=== PATIENT | male | born 1960 | race Caucasian/White ===

== ENCOUNTER 2017-11-06 08:00 | Outpatient (RCR) | payer BC, MEDICARE, SELFPAY ==
--- NOTE | 2017-11-01 15:16 | HMH.PTOPEV ---
Rehab Outpatient Evaluation Rehab OP Evaluation Start: 11/01/17 14:53 Freq: Status: Active Protocol: Document 11/01/17 14:53 XAVI (Rec: 11/01/17 15:16 XAVI [id number]) Electronically Signed By Yoandy Wood, PT 11/01/17 14:53 Outpatient Therapy Subjective History Subjective History Pt reports h/o balance issues and intermittent cramping in B LE's (calf mm, feet) for ~1yr . Pt reports diagnosis of Parkinson's disease correlates with this timeline, however, pt reports that 'me staying as active as possible seems to slow the progression of my Parkinson's'. Pt reports 2 falls in the last 6 months, which has decreased in frequency d/t 'slowing down when walking around'. Chief Complaint Paresthesia Weakness Other Symptom Type Numbness Tingling Symptoms Relieved By Activity Symptoms Aggravated By Standing Physical Activity Walking Prior Functional Limitations Housework Standing Walking Balance Current Functional Limitations Housework Standing Walking Balance Symptom Description Constant but Variable Level of pain today (0-10) 3 Pain scale - at its best (0-10) 3 Pain scale - at its worst (0-10) 3 Hip/Knee Eval MMT bilateral Hip Flexion Strength Grade 4 Good Hip Abduction Strength Grade 4 Good Hip Adduction Strength Grade 4 Good Hip Extension Strength Grade 4 Good Knee Extension Strength Grade 5 Normal Knee Flexion Strength Grade 5 Normal Balance Eval Subjective Hx of Complaint Comment parkinson's disease, balance deficits Chief Complaint vertigo No Did you feel dizzy, unsteady or faint? No Activity at onset 1yr Hx of Falls Hx Falls Yes Number in last 6 months 2 Gait/Posture Asssessment General Gait Observation Decrease Stride Lngth (R) Decrease Stride Lngth (L) Assistive Devices None / NA Level of Transfer Assist
== END 2017-11-06 08:01 | disposition home or self-care (01) ==
LOC: PT 08:00
PROVIDERS: Visit Provider Internal Medicine Adolescent Medicine
DX: G20 Parkinson's disease (principal); R29.6 Repeated falls; R27.0 Ataxia, unspecified
CPT/HCPCS: 97110; 97112

== ENCOUNTER 2017-11-08 09:45 | Outpatient (RCR) | payer BC, MEDICARE, SELFPAY | END 2017-11-08 09:46 | disposition home or self-care (01) | LOC: OT 09:45 | PROVIDERS: Visit Provider Internal Medicine Adolescent Medicine | DX: R29.898 Other symptoms and signs involving the musculoskeletal system (principal); R29.818 Other symptoms and signs involving the nervous system ==

== ENCOUNTER → 2019-02-18 12:11 | Outpatient (CLI) | payer MEDICARE, SELFPAY ==
--- NOTE | 2019-02-18 12:18 | NVE_ITS ---
Venous Exam Indications: 729.81 Swelling of limb. 782.3 Edema. IMPRESSIONS 1. There is no evidence of significant Reflux. 2. No evidence of deep or superficial vein thrombosis involving the left lower extremity 3. No evidence of deep or superficial vein thrombosis involving the right lower extremity Complete lower extremity venous duplex evaluation. Doppler flow study including spectral analysis, color and judd scale imaging. Location: Vascular laboratory. Patient status: Outpatient. CRITICAL FINDINGS - Reported to: TSESY - Read back and verified. - 02/18/19 - 1230 - NO DVT/SVT INCIDENTAL FINDING BAKERS CYST LEFT CALF Tables: Venous flow and imaging: + +-------+ + Location Overall Flow properties + +-------+ + Right common femoral Patent Normal phasicity; spontaneous; normal augmentation; compressible + +-------+ + Right saphenofemoral junction Patent Compressible + +-------+ + Right profunda femoral Patent Compressible + +-------+ + Right femoral Patent Normal phasicity; spontaneous; normal augmentation; compressible; no reflux + +-------+ + Right greater saphenous Patent Normal phasicity; spontaneous; normal augmentation; compressible + +-------+ + Right popliteal Patent Normal phasicity; spontaneous; normal augmentation; compressible + +-------+ + Right posterior tibial Patent Compressible + +-------+ + Right peroneal Patent Compressible + +-------+ + Right gastrocnemius Patent Compressible + +-------+ + Right soleal Patent Compressible + +-------+ + Left common femoral Patent Normal phasicity; spontaneous; normal augmentation; compressible + +-------+ + Left saphenofemoral junction Patent Compressible + +-------+ + Left profunda femoral Patent Compressible + +-------+ + Left femoral Patent Normal phasicity; spontaneous; normal augmentation; compressible + +-------+ + Left greater saphenous Patent Normal phasicity; spontaneous;
== END ==
PROVIDERS: PCP Internal Medicine Adolescent Medicine; Visit Provider Internal Medicine Adolescent Medicine
DX: R60.1 Generalized edema (principal); M79.662 Pain in left lower leg; M79.661 Pain in right lower leg
CPT/HCPCS: 93970

== ENCOUNTER → 2019-03-24 12:09 | Outpatient (CLI) | payer MEDICARE, SELFPAY ==
--- NOTE | 2019-03-24 12:15 | XR_ITS ---
XR hip LT 2-3V w/pelvis HISTORY: Left hip pain ITS.REASON: LOW BACK PAIN ORDERING PHYSICIAN: Deny Santos MD PATIENT AGE: 58 years COMPARISON: None FINDINGS: No fracture or dislocation is evident. No significant degenerative change. No lytic or blastic change. Unremarkable soft tissues IMPRESSION: Negative hip
--- NOTE | 2019-03-24 12:15 | XR_ITS ---
EXAM: XR lumbar spine min 4V HISTORY: ITS.REASON: LOW BACK PAIN ORDERING PHYSICIAN: Deny Santos MD PATIENT AGE: 58 years COMPARISON: None FINDINGS: There is mild dextroscoliosis of the lumbar spine with multilevel degenerative disc disease from T11 to S1. There is slight decrease in the disc spaces with small endplate osteophytes. There is facet hypertrophic/arthritic change at L4-L5 and L5-S1. There is generalized vascular calcification. No acute fracture or dislocation. No lytic or blastic change. IMPRESSION: Lumbar spondylosis with degenerative disc disease and facet arthritic change
--- NOTE | 2019-03-24 12:15 | XR_ITS ---
XR hip RT 2-3V w/pelvis HISTORY: ITS.REASON: LOW BACK PAIN ORDERING PHYSICIAN: Deny Santos MD PATIENT AGE: 58 years COMPARISON: None FINDINGS: No fracture or dislocation is evident. There are minimal osteoarthritic changes of the right hip with slight decrease in the joint space medially and minimal osteophyte formation along the inferior aspect of the acetabulum. IMPRESSION: Minimal osteoarthritic change of the right hip
== END ==
PROVIDERS: PCP Internal Medicine Adolescent Medicine; Visit Provider Internal Medicine Adolescent Medicine
DX: M54.5 Low back pain (principal)
CPT/HCPCS: 72110; 73502

== ENCOUNTER → 2019-04-02 14:04 | Outpatient (CLI) | payer MEDICARE, SELFPAY ==
--- NOTE | 2019-04-02 14:10 | XR_ITS ---
XR foot RT min 3V HISTORY: ITS.REASON: RT FOOT PAIN ORDERING PHYSICIAN: Deny Santos MD PATIENT AGE: 58 years COMPARISON: None FINDINGS: There are mild osteoarthritic changes of the first metatarsal phalangeal joint. There is also some osteoarthritic change of the head of the first metatarsal with adjacent sesamoids. Normal alignment. No acute fracture or dislocation. IMPRESSION: Mild osteoarthritis of the first MTP joint and head of the first metatarsal with adjacent sesamoids
== END ==
PROVIDERS: PCP Internal Medicine Adolescent Medicine; Visit Provider Internal Medicine Adolescent Medicine
DX: M79.671 Pain in right foot (principal)
CPT/HCPCS: 73630

== ENCOUNTER → 2019-12-14 08:39 | Outpatient (POV) | payer MEDICARE, SELFPAY ==
[2019-12-14 09:04] VITALS: BP 112/65; PULSE 72; RESP 18; TEMP 36.3; O2SAT 99; BMI 39.9
--- NOTE | 2019-12-14 15:58 | HMH.PMCON ---
Assessment and Plan (1) Back pain Current visit: Yes Status: Chronic Category: Medical Code(s): M54.9 - Dorsalgia, unspecified (2) Degenerative disc disease Current visit: Yes Status: Chronic Category: Medical - Assessment and plan all Dx Assessment and Plan for all problems:: The patient does have an x-ray showing some degenerative disc disease. We will order a lumbar MRI for better determining of his pathology. I will follow-up with him after this. Patient's been instructed to call the office if he has any issues prior to the next appointment. Dr. Marte has reviewed this note and agrees with this plan of care. This note was dictated using voice recognition software and may contain errors or omissions we specifically discussed risk factors for Covid-19 including age, heart or lung disease, diabetes, immunosuppression and travel. We also discussed that NSAIDs may worsen Covid-19 infection symptoms and that they should not be used to treat Covid-19 symptoms. Patient was also informed that corticosteroids in any form oral or injectable will decrease immune response and may increase risk of Covid-[address] Marte has reviewed this patient's chart and this note and agrees with plan of care. Patient has been instructed to call the office if they have any issues prior to the next appointment. HPI - Data of Consult Consult date: 12/14/19 Requesting Physician: Keena Glass APRN Primary Care Provider: Deny Santos MD - Consult Narrative Reason for consult: Back pain History of present illness: Mr. Meneses is a 59 year old male who presents today for consultation in regards to his back and leg pain. Patient rates his pain a 9 out of 10. Patient states he has numbness and tingling in his bilateral lower extremities. Patient has tried and failed anti-inflammatories. Patient's been seeing a neurologist. All movement increases pain well rest Tylenol and aspirin decrease pain. Patient does have Parkinson's. Patient does not have any recent MRI of his low back. I do believe that this would be beneficial to start with. CC: Keena Glass APRN [facility] History I have reviewed the patient's past medical history: Yes Medical History: Reports:: Anxiety, Chronic Obstructive Pulmonary Disease (COPD), Coronary Artery Disease, Diabetes Mellitus Type 2, Hyperlipidemia, Hypertension, Palpitations Denies:: Diabetes Mellitus Type 1, MRSA *Have you ever received a pneumonia vaccine?: Yes *Have you received a flu vaccine this season?: Yes Other Surgeries: Yes: Cardiac Catheterization, Cholecystectomy, ColonoscopyComment Only: Other (.) Amputation: No Fractures: No - *Social History Smoking Status: Never smoker Alcohol Intake: never Substance Use Type: denies use *Occupational Status:: unemployed Housing: house Household Members: spouse *Travel in the last 8 weeks: None - Psychiatric History Pschychiatric History:: Reports:: Anxiety Family Hx:: No significant family history Review of Systems - Review of Systems ROS General: no recent weight change, no fever, no sleep disturbances Respiratory: no cough, no shortness of air, no recurring pulmonary infections Cardiovascular/Peripheral Vascular: No chest pain, No palpitations, no edema, no shortness of breath. Gastrointestinal: no new onset incontinence, normal bowel movements reported Genitourinary: no new onset incontinence Musculoskeletal: Back pain, leg pain Psychiatric: normal mood/ affect, Neurological: [denies new onset weakness in extremities], [denies new onset balance issues] Meds Home Medications Medication Instructions Recorded Confirmed Type aspirin 81 mg tablet,delayed 81 mg PO DAILY tab 11/18/17 12/14/19 History release carbidopa ER 50 mg-levodopa 200 mg 1 tab PO BID tab 11/18/17 12/14/19 History tablet,extended release metformin 500 mg tablet 500 mg PO BID 11/18/17 12/14/19 History mometasone-formot
== END ==
PROVIDERS: PCP Internal Medicine Adolescent Medicine; Visit Provider Clinical Nurse Specialist Family Health
DX: M51.36 Other intervertebral disc degeneration, lumbar region
CPT/HCPCS: 99202

== ENCOUNTER → 2019-12-18 09:07 | Outpatient (CLI) | payer MEDICARE, SELFPAY ==
--- NOTE | 2019-12-18 09:13 | MR_ITS ---
PROCEDURE: MR LUMBAR SPINE WO CON CLINICAL INDICATION: BACK PAIN Low back pain with bilateral hip pain COMPARISON: No exams were available for comparison TECHNIQUE: Standard multiplanar multiecho sequences are performed without contrast. 3-D MIP and myelographic images are also rendered and reviewed FINDINGS: There is normal alignment. The spinal cord ends at the T12-L1 level. T11-T12: Unremarkable. T12-L1: Unremarkable. L1-L2: Degenerative disc disease with minimal bulging disc and mild facet and uncovertebral hypertrophy with mild left foraminal narrowing. L2-L3: Mild degenerative disc disease with minimal bulging disc and facet and ligamentum hypertrophy a L3-L4: Mild degenerative disc disease with bulging disc along with facet and ligamentum hypertrophy with mild bilateral lateral recess and foraminal narrowing L4-5: Degenerate disc disease with mild bulging disc with facet ligamentum hypertrophy with moderate bilateral foraminal narrowing and lateral recess narrowing. L5-S1: Degenerate disc disease with mild bulging disc. There is small central disc protrusion with small annular fissure. There is facet ligamentum hypertrophy with moderate bilateral foraminal narrowing. No extruded herniated disc or canal stenosis. IMPRESSION: Multilevel lumbar spondylosis with degenerative disc disease with bulging disc and facet ligamentum hypertrophy with lateral recess and foraminal narrowing. Please see above for detailed description at each level. Small central disc protrusion with small annular fissure at L5-S1 No extruded herniated disc or canal stenosis Dictated by: Christiano Richardson MD 12/19/2019 10:45 Electronically signed by Christiano Richardson MD in [place] 12/19/2019 10:45
== END ==
PROVIDERS: PCP Internal Medicine Adolescent Medicine; Visit Provider Anesthesiology
DX: M54.5 Low back pain (principal)
CPT/HCPCS: 72148; 76376

== ENCOUNTER → 2019-12-28 15:05 | Outpatient (POV) | payer MEDICARE, SELFPAY ==
[2019-12-28 15:12] VITALS: BP 137/88; PULSE 78; RESP 18; TEMP 36.6; O2SAT 98; BMI 38.9
--- NOTE | 2019-12-28 15:49 | HMH.PAINSOAP ---
[facility] Pain Management SOAP Note Subjective:: Patient is a pleasant 59-year-old white male who presents today for follow-up after MRI. Patient has degenerative disc disease, ligamentum flavum hypertrophy and bulging disc. Patient and I talked about an epidurogram and potential mild procedure. Along with epidural steroid injections. Patient states most of his pain is when he is up and walking. He finds that he cannot move forward without leaning forward. He rates his pain today 8 out of 10. He is not on any anticoagulation therapy. ROS General: no recent weight change, no fever, no sleep disturbances Respiratory: no cough, no shortness of air, no recurring pulmonary infections Cardiovascular/Peripheral Vascular: No chest pain, No palpitations, no edema, no shortness of breath. Gastrointestinal: no new onset incontinence, normal bowel movements reported Genitourinary: no new onset incontinence Musculoskeletal: Back pain, leg pain Psychiatric: normal mood/ affect, [denies depression], [denies anxiety] Neurological: Weakness bilateral lower extremities while walking, [denies new onset balance issues] Objective:: Physical Exam General: Alert and oriented x3, no acute distress, pleasant and cooperative, [on room air] Lungs: Resps E/U, Symmetrical chest expansion, Eyes: PERRL Musculoskeletal: Flexion and extension of lumbar spine somewhat guarded secondary to pain, deep tendon reflexes normal, strength in upper and lower extremities [5/5], [abnormal gait noted] Neurological: speech clear, monitor technician equal, no gross sensory deficits Assessment:: Degenerative disc disease lumbar spine with lumbar radiculopathy and spinal stenosis with neurogenic claudication Plan:: We will set the patient up for an L4-L5 lumbar epidural steroid injection and epidurogram to determine if he is mild candidate. I will follow-up with him after this reassess his symptoms at that time he has been instructed to call the office if he has any issues prior to his next appointment. We specifically discussed risk factors for Covid-19 including age, heart or lung disease, diabetes, immunosuppression and travel. We also discussed that NSAIDs may worsen Covid-19 infection symptoms and that they should not be used to treat Covid-19 symptoms. Patient was also informed that corticosteroids in any form oral or injectable will decrease immune response and may increase risk of Covid-[address] Marte has reviewed this patient's chart and this note and agrees with plan of care. Patient has been instructed to call the office if they have any issues prior to the next appointment. Dr. Marte has reviewed this note and agrees with this plan of care. This note was dictated using voice recognition software and may contain errors or omissions [facility] History I have reviewed the patient's past medical history: Yes Medical History: Reports:: Anxiety, Chronic Obstructive Pulmonary Disease (COPD), Coronary Artery Disease, Diabetes Mellitus Type 2, Hyperlipidemia, Hypertension, Palpitations Denies:: Diabetes Mellitus Type 1, MRSA *Have you ever received a pneumonia vaccine?: Yes *Have you received a flu vaccine this season?: Yes Other Surgeries: Yes: Cardiac Catheterization, Cholecystectomy, ColonoscopyComment Only: Other (.) Amputation: No Fractures: No - *Social History Smoking Status: Never smoker Alcohol Intake: never Substance Use Type: denies use *Occupational Status:: other Housing: house Household Members: spouse *Travel in the last 8 weeks: None - Psychiatric History Pschychiatric History:: Reports:: Anxiety Family Hx:: No significant family history
== END ==
PROVIDERS: PCP Internal Medicine Adolescent Medicine; Visit Provider Clinical Nurse Specialist Family Health
DX: M51.16 Intervertebral disc disorders with radiculopathy, lumbar region (principal); M48.062 Spinal stenosis, lumbar region with neurogenic claudication
CPT/HCPCS: 99212

== ENCOUNTER → 2019-12-30 11:45 | Outpatient (CLI) | payer MEDICARE, SELFPAY ==
[2019-12-31 15:01] LABS: Covid-19 Nasal PCR Sendout Lex NOT DETECTED
== END ==
PROVIDERS: Visit Provider Anesthesiology
DX: Z01.818 Encounter for other preprocedural examination (principal); M48.00 Spinal stenosis, site unspecified
CPT/HCPCS: U0003

== ENCOUNTER 2020-01-01 11:11 | Day surgery (SDC) | payer MEDICARE, SELFPAY ==
[2020-01-01 11:53] VITALS: BP 137/64; PULSE 60; RESP 18; TEMP 37; O2SAT 98; BMI 38.9
[2020-01-01 12:20] VITALS: BP 152/87; BP 152/89; PULSE 82; PULSE 89; RESP 18; O2SAT 99
--- NOTE | 2020-01-01 12:30 | HMH.PMPROC ---
- Procedure Date: 01/01/20 Time: 12:31 Anesthesiologist:: Shukri Marte MD Complications:: None Pre-procedure Diagnosis:: Degenerative disc disease of lumbar spine with lumbar radicular symptoms and spinal stenosis with neurogenic claudication symptoms Post-procedure Diagnosis:: Same Indications for Procedure:: This patient is a pleasant 59-year-old white male who we are treating for low back pain with lumbar spinal stenosis and neurogenic claudication symptoms with lumbar radicular symptoms. He is having increasing pain while standing and walking in his back and some down his legs. This is relieved by leaning forward. MRI does show significant ligamentum flavum hypertrophy. We will do a lumbar epidural steroid injection today to see if this will help with symptoms and we will also do an epidurogram to assess levels of stenosis. Procedure Details:: Lumbar epidural steroid injection under fluoroscopy Informed consent was obtained and the risk and benefits of the procedure was explained to the patient. The patient was taken to the procedure room. The patient was placed prone on the procedure table. The patient was prepped and draped in sterile fashion. C-arm fluoroscopy was used to view the lumbar spine. Skin and subcutaneous tissues were anesthetized using lidocaine. I placed an 18-gauge epidural needle and advanced into the L4-L5 interspace using fluoroscopic guidance and [id number] to air. After confirmation of needle placement in the epidural space with dye I injected 2 mL of lidocaine 1.5% with Depo-Medrol 80 mg. Patient tolerated the procedure well with no complications. Plan and Disposition:: Given spread of dye there is significant stenosis at L3-L4 and L4-L5 bilaterally. I believe he would benefit from bilateral minimally invasive lumbar decompression of L3-L4 and L4-L5. We will schedule this here in the next few weeks. We will follow-up after this lumbar pleural steroid injection in the next couple weeks as well.
[2020-01-01 12:37] VITALS: BP 128/72; PULSE 65; RESP 20; O2SAT 98
== END 2020-01-01 12:38 | disposition home or self-care (01) ==
LOC: SC.PAINP 11:13
PROVIDERS: PCP Internal Medicine Adolescent Medicine; Visit Provider Anesthesiology
DX: M51.16 Intervertebral disc disorders with radiculopathy, lumbar region (principal); M48.062 Spinal stenosis, lumbar region with neurogenic claudication
CPT/HCPCS: 62323; J1040; Q9966

== ENCOUNTER → 2020-01-25 09:24 | Outpatient (POV) | payer MEDICARE, SELFPAY ==
[2020-01-25 10:02] VITALS: BP 122/58; PULSE 76; RESP 18; TEMP 36.6; O2SAT 98; BMI 34.8
--- NOTE | 2020-01-26 08:35 | HMH.PAINSOAP ---
[facility] Pain Management SOAP Note Subjective:: Patient is a pleasant 59-year-old white male who presents today for follow-up after epidurogram/lumbar epidural steroid injection. He stated that it did help. He is a candidate for a minimally invasive lumbar decompression at the levels of L3-L4 L4-L5. Patient states he is uninterested in pursuing this and he is uninterested in pursuing any additional injection therapy due to his current living situation. He would like to follow-up on an as-needed basis. ROS General: no recent weight change, no fever, no sleep disturbances Respiratory: no cough, no shortness of air, no recurring pulmonary infections Cardiovascular/Peripheral Vascular: No chest pain, No palpitations, no edema, no shortness of breath. Gastrointestinal: no new onset incontinence, normal bowel movements reported Genitourinary: no new onset incontinence Musculoskeletal: Back pain, leg pain Psychiatric: normal mood/ affect, , Neurological: Has bilateral lower extremities with walking, [denies new onset balance issues] Objective:: Physical Exam General: Alert and oriented x3, no acute distress, pleasant and cooperative, [on room air] Lungs: Resps E/U, Symmetrical chest expansion, Eyes: PERRL Musculoskeletal: Flexion and extension of lumbar spine somewhat guarded secondary to pain, deep tendon reflexes normal, strength in upper and lower extremities [5/5], [abnormal gait noted] Neurological: speech clear, end worker equal, no gross sensory deficits Assessment:: Degenerative disc disease lumbar spine lumbar radiculopathy, spinal stenosis with neurogenic claudication Plan:: We will see the patient back on an as-needed basis. Patient uninterested in any therapies at this time due to current living situations. He has been instructed to call the office if he has any issues. Dr. Marte has reviewed this note and agrees with this plan of care. This note was dictated using voice recognition software and may contain errors or omissions [facility] History I have reviewed the patient's past medical history: Yes Medical History: Reports:: Anxiety, Chronic Obstructive Pulmonary Disease (COPD), Coronary Artery Disease, Diabetes Mellitus Type 2, Hyperlipidemia, Hypertension, Palpitations Denies:: Cancer, Diabetes Mellitus Type 1, MRSA, Seizures *Have you ever received a pneumonia vaccine?: Yes *Have you received a flu vaccine this season?: Yes Other Surgeries: Yes: Cardiac Catheterization, Cholecystectomy, ColonoscopyComment Only: Other (.) Amputation: No Fractures: No - *Social History Smoking Status: Never smoker Alcohol Intake: never Substance Use Type: denies use *Occupational Status:: other Housing: house Household Members: spouse *Travel in the last 8 weeks: None - Psychiatric History Pschychiatric History:: Reports:: Anxiety Family Hx:: No significant family history
== END ==
PROVIDERS: PCP Internal Medicine Adolescent Medicine; Visit Provider Clinical Nurse Specialist Family Health
DX: M51.16 Intervertebral disc disorders with radiculopathy, lumbar region (principal); M48.062 Spinal stenosis, lumbar region with neurogenic claudication
CPT/HCPCS: 99212

== ENCOUNTER → 2020-03-10 11:34 | Outpatient (POV) | payer MEDICARE, SELFPAY ==
[2020-03-10 11:56] VITALS: BP 147/78; PULSE 68; RESP 18; O2SAT 98; BMI 35.8
--- NOTE | 2020-03-10 12:06 | HMH.PAINSOAP ---
[facility] Pain Management SOAP Note Subjective:: Patient is a pleasant 59-year-old white male who presents today for follow-up. He has been treated for low back pain with lumbar radiculopathy symptoms. Patient says the pain is radiating down his right leg. Ports to have numbness and tingling along with heaviness into his right lower extremity. He rates his pain an 8 out of 10. He did discuss possible minimally invasive lumbar decompression procedure with providers in the past, however, was uninterested at that time. Patient says that he thought he had to stay in the hospital for 3 days and then undergo physical therapy following the procedure. He says this is why he did decide against the procedure. He does not want to pursue any further injective therapy. He is interested in discussing the mild procedure today. From his MRI, he would be a good candidate at the L3-L4 L4-L5 levels. He has tried conservative therapies of injections, anti-inflammatories, and physical therapy. He does continue with a home stretching program. Patient has been taken off of his anti-inflammatories by his primary care provider due to concern for renal insufficiency. Patient says he did take meloxicam for many years. He does admit that he does continue to take Tylenol arthritis pills. Review of Systems General: No recent weight changes, no fever, no sleep disturbances Respiratory: No cough, no shortness of air, no recurring pulmonary infections Cardiovascular/peripheral vascular: No chest pain, no palpitations, no edema, no shortness of breath Gastrointestinal: No new onset incontinence, normal bowel movements reported Genitourinary: No new onset incontinence Musculoskeletal: Back pain, right leg pain Psychiatric: Normal mood/affect Neurological: [Denies weakness in extremities], [denies balance issues] Objective:: Physical exam General: Alert and oriented x3, no acute distress, pleasant and cooperative, [on room air] Lungs: Respirations even and unlabored, symmetrical chest expansion Eyes: PERRL Musculoskeletal: Flexion and extension of lumbar spine somewhat guarded secondary to pain, deep tendon reflexes normal, strength in upper and lower extremities [5/5], [abnormal gait noted] Neurological: Speech clear, traveling nurse equal, no gross sensory deficit Assessment:: Degenerative disc disease lumbar spine with lumbar radiculopathy symptoms, spinal stenosis with neurogenic claudication symptoms Plan:: Patient I did have a long discussion concerning the mild procedure. He understands he will not need to remain in the hospital. He does understand there is very little downtime with the procedure, however, I have encouraged the patient that he would want to perform light activity following the procedure to allow for healing process. I did give the patient educational information to take home with him today. The patient does want to schedule the procedure. He is not on any anticoagulation therapy. We will plan to see him back after his procedure to reassess his symptoms. He has been instructed to contact clinic if he has any concerns before his next appointment. He has tried and failed all other conservative therapies. The patient and I specifically discussed risk factors for COVID19. These risks include, but are not limited to age greater than 60, heart or lung disease, diabetes, immunosuppression, and travel. We also discussed NSAIDs may worsen COVID19 infection or symptoms. Patient should not use NSAIDs to treat COVID19 signs or symptoms. Patient was also informed that any type of corticosteroid of any form (oral or injection) will decrease the patient's immune system response and may increase the likelihood of COVID19 infection [address] symptoms[address]. Marte has reviewed this note and agrees with this plan of care. This note was dictated using voice recognition software and make contain errors or omissions. [facility] History I have reviewed the patient's past me
== END ==
PROVIDERS: PCP Internal Medicine Adolescent Medicine; Visit Provider Clinical Nurse Specialist Family Health
DX: M51.16 Intervertebral disc disorders with radiculopathy, lumbar region (principal); M48.062 Spinal stenosis, lumbar region with neurogenic claudication
CPT/HCPCS: 99212

== ENCOUNTER → 2020-03-17 13:08 | Outpatient (CLI) | payer MEDICARE, SELFPAY ==
[2020-03-17 13:44] LABS: Basophils # 0.1 K/mm3 (0-0.2); Basophils % 1.6 % (0.1-2.0); Eosinophils # 0.4 K/mm3 (0.0-0.4); Eosinophils % 5.3 % (0.1-12.0); Hematocrit 41.9 % (42.0-52.0); Hemoglobin 14.2 g/dL (14.1-18.0); Lymphocytes # 2.4 K/mm3 (0.7-4.5); Lymphocytes % 31.9 % (10-50); Mean Corpuscular HGB Conc 33.9 g/dL (31.8-35.4); Mean Corpuscular Hemoglobin 31.7 pg (27.0-31.2); Mean Corpuscular Volume 93.6 fl (80-94); Mean Platelet Volume 7.6 fl (7.4-10.4); Monocytes # 0.5 K/mm3 (0.1-1.0); Monocytes % 6.8 % (1.7-9.3); Neutrophils # 4.1 K/mm3 (1.8-7.8); Neutrophils % 54.3 % (37.0-80.0); Platelet Count 258 K/mm3 (142-424); Red Blood Count 4.48 M/mm3 (4.60-6.20); Red Cell Distribution Width 13.1 % (11.5-17.5); White Blood Count 7.5 K/mm3 (4.8-10.8)
[2020-03-17 14:47] LABS: Anion Gap 16.2 mEq/L (5-15); Blood Urea Nitrogen 15 mg/dl (9-20); Calcium 9.5 mg/dl (8.4-10.2); Carbon Dioxide 28 mmol/L (22.0-30.0); Chloride 101 mmol/L (98-107); Estimated Glomerular Filt Rate 86 ml/min (>60); GFR (African American) 105 ML/MIN (>60); Glucose 84 mg/dl (74-100); Potassium 4.2 mmoL/L (3.5-5.1); Sodium 141 mmol/L (136-145)
[2020-03-17 15:10] LABS: Coronavirus 19 IgG Antibody Negative (Negative); Coronavirus 19 IgM Antibody Negative (Negative)
== END ==
PROVIDERS: Visit Provider Anesthesiology
DX: Z01.818 Encounter for other preprocedural examination (principal); M51.36 Other intervertebral disc degeneration, lumbar region
CPT/HCPCS: 36415; 80048; 85025; 86328

== ENCOUNTER 2020-03-18 11:22 | Day surgery (SDC) | payer MEDICARE, SELFPAY ==
[2020-03-17 11:00] VITALS: BMI 34.5
[2020-03-18 12:25] VITALS: BP 137/83; PULSE 67; RESP 18; TEMP 36.6; O2SAT 98
[2020-03-18 12:45] LABS: POC Glucose,Bedside 87 (70-110)
--- NOTE | 2020-03-18 13:51 | P.OP_ITS ---
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 He has a lot of pain while standing and walking especially into his right hip and down his right leg. He is failed all previous conservative therapy including physical therapy, epidural steroid injections and he is not a surgical candidate. We will plan on minimally invasive lumbar decompression of L3-4 and L4-L5 bilaterally today. Operative findings:: None Operative note:: Informed consent was obtained and the risk and benefits of the procedure was explained to the patient. The patient was taken to the operating room and placed prone on the procedure table. The patient was prepped and draped in sterile fashion. C-arm fluoroscopy was used to view the lumbar spine. The skin and subcutaneous tissues were anesthetized using lidocaine. A epidural needle was inserted and advanced into the L3-L4 interspace. After confirmation of needle placement in the epidural space, dye was injected in a contralateral oblique view. There was an epidurogram seen at L3-L4 and L4-L5. Significant stenosis was seen at L3-L4 and L4-L5. The skin and subcutaneous tissues again were anesthetized using lidocaine. An incision was made and a access trocar was inserted and advanced to contact at the superior aspect of the L4 lamina on the left side. And a contralateral oblique view the side was viewed. Using a bone rongeur and tissue sculptor we debulked bone from the L3-L4 and L4-L5 interspace on the left side. We then used the tissue sculptor to debulk ligament at the L3-L4 and L4-L5 interspace on the left side. We then moved over to the right side and debulked bone and ligament from L3-L4 and L4-L5 on the right side. There is opening of the stenosis at L3-L4 and L4-L5 bilaterally. The access trocar was removed. A total of 3 mL's of dye was used. There is good spread of dye above and below this level as well. We injected 80 mg Depo-Medrol through the epidural needle. The epidural needle was removed and dressings were placed. This encounter for exam is for normal comparison and control in a clinical research program Patient was taken to recovery in stable condition. Patient was discharged home neurologically intact and with good relief of pain symptoms. Plan and disposition: We will follow-up with this patient in 2 weeks. Will reevaluate symptoms at that time. Condition: stable Disposition: PACU Complications:: None
[2020-03-18 13:55] VITALS: BP 131/71; PULSE 84; RESP 18; TEMP 36.3; O2SAT 97
[2020-03-18 14:05] VITALS: BP 140/78; PULSE 83; RESP 18; O2SAT 96
[2020-03-18 14:15] VITALS: BP 135/81; PULSE 67; RESP 18; O2SAT 96
[2020-03-18 14:25] VITALS: BP 138/76; PULSE 78; RESP 18; O2SAT 97
[2020-03-18 14:43] VITALS: BP 153/68; PULSE 76; RESP 18; O2SAT 97
--- NOTE | 2020-03-18 14:43 | HMH.ANESCL ---
[facility] Anesthesia Checklist - Structural Data Admitted From: Home Planned Operative Procedure/s: mild procedure Consent for Planned Operative Procedure(s) Verified: Yes - Additional verifications Anesthesia Reactions: No Hx Blood Transfusions: No - Airway Assessment C-Spine Mobility Assessed: Yes TMJ Mobility Assessed: Yes Dentition: Poor Dentition - Neurological Assessment Level of Consciousness: Awake, Alert, Appropriate - Anesthesia Plan Anesthesia Risk discussed: Yes Anesthesia Plan: Verified ASA Class: III Anesthesia Type: MAC [facility] History I have reviewed the patient's past medical history: Yes Medical History: Reports:: Anxiety, Chronic Obstructive Pulmonary Disease (COPD), Coronary Artery Disease, Diabetes Mellitus Type 2, Hyperlipidemia, Hypertension, Palpitations Denies:: Cancer, Diabetes Mellitus Type 1, Internal Pacemaker, MRSA, Seizures *Have you ever received a pneumonia vaccine?: Yes *Have you received a flu vaccine this season?: Yes Anesthesia experience/problems:: none Other Surgeries: Yes: Cardiac Catheterization, Cholecystectomy, Colonoscopy. No: Pacemaker. Comment Only: Other (.) Amputation: No Fractures: No - *Social History Smoking Status: Never smoker Alcohol Intake: never Substance Use Type: denies use *Occupational Status:: disabled Housing: house Household Members: spouse *Travel in the last 8 weeks: None - Psychiatric History Pschychiatric History:: Reports:: Anxiety Family Hx:: No significant family history
== END 2020-03-18 14:45 | disposition home or self-care (01) ==
LOC: OR 11:24
PROVIDERS: PCP Internal Medicine Adolescent Medicine; Visit Provider Anesthesiology
PROC: (CPT 0275T; principal; 2020-03-18 12:45)
DX: M48.062 Spinal stenosis, lumbar region with neurogenic claudication (principal); Z00.6 Encounter for examination for normal comparison and control in clinical research program; F41.9 Anxiety disorder, unspecified; J44.9 Chronic obstructive pulmonary disease, unspecified; I25.10 Atherosclerotic heart disease of native coronary artery without angina pectoris; E11.9 Type 2 diabetes mellitus without complications; E78.5 Hyperlipidemia, unspecified; I10 Essential (primary) hypertension; R00.2 Palpitations; Z88.8 Allergy status to other drugs, medicaments and biological substances; Z79.82 Long term (current) use of aspirin; Z79.84 Long term (current) use of oral hypoglycemic drugs; Z79.51 Long term (current) use of inhaled steroids; Z79.899 Other long term (current) drug therapy
CPT/HCPCS: 0275T; 82962; 96374; C1889; J1040; J3370

== ENCOUNTER → 2020-03-31 09:10 | Outpatient (POV) | payer MEDICARE, SELFPAY ==
[2020-03-31 09:15] VITALS: BP 132/85; PULSE 85; RESP 18; O2SAT 98; BMI 37.8
--- NOTE | 2020-03-31 10:08 | HMH.PAINSOAP ---
[facility] Pain Management SOAP Note Subjective:: Patient is a pleasant 59-year-old white male who presents today for follow-up after minimally invasive lumbar decompression procedure L3-L4 L4-L5 bilaterally. Patient says his pain is an 8 out of 10 today. He says it is worse when he is walking. He does have some improvement with sitting. He says he still having some pain in his lower extremities. Patient says that he would like to see if he can improve over the next month without any type of injections or oral medications that will cause him to have drowsiness. I did discuss the patient taking anti-inflammatories. He would like to try diclofenac for the next few weeks to see if this gives him some relief. He says he is not taking any anti-inflammatories at this time. He did take meloxicam in the past. Review of Systems General: No recent weight changes, no fever, no sleep disturbances Respiratory: No cough, no shortness of air, no recurring pulmonary infections Cardiovascular/peripheral vascular: No chest pain, no palpitations, no edema, no shortness of breath Gastrointestinal: No new onset incontinence, normal bowel movements reported Genitourinary: No new onset incontinence Musculoskeletal: Low back pain, bilateral lower extremity pain Psychiatric: Normal mood/affect Neurological: [Denies weakness in extremities], [denies balance issues] Objective:: Physical exam General: Alert and oriented x3, no acute distress, pleasant and cooperative, [on room air] Lungs: Respirations even and unlabored, symmetrical chest expansion Eyes: PERRL Musculoskeletal: Flexion and extension of lumbar spine somewhat guarded secondary to pain, deep tendon reflexes normal, strength in upper and lower extremities [5/5], [abnormal gait noted] Neurological: Speech clear, director of education and training equal, no gross sensory deficit Assessment:: Degenerative disc disease lumbar spine with lumbar spinal stenosis and neurogenic claudication symptoms Plan:: We will see the patient back in the clinic in 2 weeks. We will start him on diclofenac 75 mg 1 tablet p.o. twice daily. Patient has been instructed to contact clinic if he has any concerns before his next appointment. Education Dr. Marte has reviewed this note and agrees with this plan of care. This note was dictated using voice recognition software and make contain errors or omissions. [facility] History I have reviewed the patient's past medical history: Yes Medical History: Reports:: Anxiety, Chronic Obstructive Pulmonary Disease (COPD), Coronary Artery Disease, Diabetes Mellitus Type 2, Hyperlipidemia, Hypertension, Palpitations Denies:: Cancer, Diabetes Mellitus Type 1, Internal Pacemaker, MRSA, Seizures *Have you ever received a pneumonia vaccine?: Yes *Have you received a flu vaccine this season?: Yes Other Surgeries: Yes: Cardiac Catheterization, Cholecystectomy, Colonoscopy. No: Pacemaker. Comment Only: Other (.) Amputation: No Fractures: No - *Social History Smoking Status: Never smoker Alcohol Intake: never Substance Use Type: denies use *Occupational Status:: other Housing: house Household Members: spouse *Travel in the last 8 weeks: None - Psychiatric History Pschychiatric History:: Reports:: Anxiety Family Hx:: No significant family history
== END ==
PROVIDERS: PCP Internal Medicine Adolescent Medicine; Visit Provider Clinical Nurse Specialist Family Health
DX: M51.36 Other intervertebral disc degeneration, lumbar region (principal); M48.062 Spinal stenosis, lumbar region with neurogenic claudication
CPT/HCPCS: 99212

== ENCOUNTER → 2020-04-21 09:03 | Outpatient (POV) | payer MEDICARE, SELFPAY ==
--- NOTE | 2020-04-21 09:21 | HMH.PAINSOAP ---
[facility] Pain Management SOAP Note Subjective:: Very pleasant 59-year-old white male who presents today for follow-up after minimally invasive lumbar decompression procedure L3-L4 L4-L5 bilaterally. He rates his pain today a 5 out of 10. Patient states that he has not seen much improvement since the mild procedure. However he does state he can stand for 45 to 50 minutes before having to sit down due to pain. He states he is not having weakness in his lower legs. Patient states he can walk at least 100- 150 feet without resting. Patient and I had a long discussion in regards to moving forward with care. He is on diclofenac. He states he takes it at nighttime due to it making him sleepy. I did discuss physical therapy with him and I did discuss epidural steroid injections with him. ROS General: no recent weight change, no fever, no sleep disturbances Respiratory: no cough, no shortness of air, no recurring pulmonary infections Cardiovascular/Peripheral Vascular: No chest pain, No palpitations, no edema, no shortness of breath. Gastrointestinal: no new onset incontinence, normal bowel movements reported Genitourinary: no new onset incontinence Musculoskeletal: Back pain leg pain Psychiatric: normal mood/ affect, Neurological: [denies new onset weakness in extremities], [denies new onset balance issues] Objective:: Physical Exam General: Alert and oriented x3, no acute distress, pleasant and cooperative, [on room air] Lungs: Resps E/U, Symmetrical chest expansion, Eyes: PERRL Musculoskeletal: Flexion and extension of lumbar spine somewhat guarded secondary to pain, deep tendon reflexes normal, strength in upper and lower extremities [5/5], [abnormal gait noted] Neurological: speech clear, test and turn up technician equal, no gross sensory deficits Assessment:: [place] disc disease lumbar spine lumbar radiculopathy, spinal stenosis with neurogenic claudication 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 He does not feel he can commit to coming in for physical therapy. Patient would like to stay away from epidural injections at this time stating that it is just a false positive . I discussed with him that post mild procedure the efficacy of them seem to increase. Patient is uninterested at this time. I did discuss with him if he would like to move forward with an epidural injection he is welcome to call our office. We will set him up for physical therapy I will follow-up with him in a month reassess his symptoms at that time he has been instructed to call the office if he has any issues prior to his next appointment. Dr. Marte has reviewed this note and agrees with this plan of care. This note was dictated using voice recognition software and may contain errors or omissions [facility] History I have reviewed the patient's past medical history: Yes Medical History: Reports:: Anxiety, Chronic Obstructive Pulmonary Disease (COPD), Coronary Artery Disease, Diabetes Mellitus Type 2, Hyperlipidemia, Hypertension, Palpitations Denies:: Cancer, Diabetes Mellitus Type 1, Internal Pacemaker, MRSA, Seizures *Have you ever received a pneumonia vaccine?: Yes *Have you received a flu vaccine this season?: Yes Other Surgeries: Yes: Cardiac Catheterization, Cholecystectomy, Colonoscopy. No: Pacemaker. Comment Only: Other (.) Amputation: No Fractures: No - *Social History Smoking Status: Never smoker Alcohol Intake: never Substance Use Type: denies use *Occupational Status:: other Housing: house Household Members: spouse *Travel in the last 8 weeks: None - Psychiatric History Pschychiatric History:: Reports:: Anxiety Family Hx:: No significant family history
[2020-04-21 09:23] VITALS: BP 138/54; PULSE 62; RESP 18; TEMP 36.8; O2SAT 98; BMI 37.5
== END ==
PROVIDERS: PCP Internal Medicine Adolescent Medicine; Visit Provider Clinical Nurse Specialist Family Health
DX: M51.16 Intervertebral disc disorders with radiculopathy, lumbar region (principal); M48.062 Spinal stenosis, lumbar region with neurogenic claudication; M46.00 Spinal enthesopathy, site unspecified; Z09 Encounter for follow-up examination after completed treatment for conditions other than malignant neoplasm
CPT/HCPCS: 99212

== ENCOUNTER → 2021-07-27 12:25 | Outpatient (CLI) | payer MEDICARE, SELFPAY ==
[2021-07-27 13:13] LABS: Basophils # 0.1 K/mm3 (0-0.2); Basophils % 1.2 % (0.1-2.0); Eosinophils # 0.1 K/mm3 (0.0-0.4); Eosinophils % 1.9 % (0.1-12.0); Hematocrit 39.1 % (42.0-52.0); Hemoglobin 13.4 g/dL (14.1-18.0); Lymphocytes # 1.8 K/mm3 (0.7-4.5); Lymphocytes % 28.3 % (10-50); Mean Corpuscular HGB Conc 34.2 g/dL (31.8-35.4); Mean Corpuscular Hemoglobin 30.8 pg (27.0-31.2); Mean Corpuscular Volume 89.9 fl (80-94); Mean Platelet Volume 8.4 fl (7.4-10.4); Monocytes # 0.6 K/mm3 (0.1-1.0); Monocytes % 9.3 % (1.7-9.3); Neutrophils # 3.7 K/mm3 (1.8-7.8); Neutrophils % 59.2 % (37.0-80.0); Platelet Count 270 K/mm3 (142-424); Red Blood Count 4.35 M/mm3 (4.60-6.20); Red Cell Distribution Width 13.4 % (11.5-17.5); White Blood Count 6.2 K/mm3 (4.8-10.8)
[2021-07-27 13:43] LABS: Chloride 101 mmol/L (98-107); Sodium 140 mmol/L (136-145)
[2021-07-27 13:44] LABS: Potassium 4.7 mmoL/L (3.5-5.1)
[2021-07-27 13:46] LABS: Anion Gap 9.7 mEq/L (5-15); Aspartate Amino Transferase 201 U/L (17-59); Blood Urea Nitrogen 18 mg/dl (9-20); Carbon Dioxide 34 mmol/L (22.0-30.0); Cholesterol 111 mg/dl (140-200); Estimated Glomerular Filt Rate 86 ml/min (>60); GFR (African American) 104 ML/MIN (>60); Triglycerides 91 mg/dl (30-150); VLDL Cholesterol 18 mg/dL (0-40)
[2021-07-27 13:47] LABS: Albumin Level 4.1 g/dl (3.5-5.0); Alkaline Phosphatase 158 U/L (38-126); Bilirubin,Total 0.6 mg/dl (0.2-1.3); Calcium 9.7 mg/dl (8.4-10.2); Chol/HDL Ratio 2.1 (1-3.5); Globulin 2.1 g/dL (1.3-3.2); Glucose 93 mg/dl (74-100); HDL Cholesterol 52 mg/dl (40-60); Total Protein,Serum 6.2 g/dl (6.3-8.2)
[2021-07-27 13:49] LABS: Alanine Aminotransferase < 4 U/L (12-78)
[2021-07-27 13:58] LABS: Direct LDL Cholesterol 46.04 mg/dL (100-129)
[2021-07-27 14:17] LABS: Thyroid Stimulating Hormone 1.39 uIU/mL (0.465-4.68)
[2021-07-27 17:07] LABS: Hemoglobin A1C 5.6 % (4.0-6.0)
== END ==
PROVIDERS: Visit Provider Internal Medicine Adolescent Medicine
DX: I25.10 Atherosclerotic heart disease of native coronary artery without angina pectoris (principal); E11.9 Type 2 diabetes mellitus without complications; E78.5 Hyperlipidemia, unspecified; Z79.84 Long term (current) use of oral hypoglycemic drugs
CPT/HCPCS: 36415; 80053; 80061; 83036; 84443; 85025

== ENCOUNTER → 2021-10-18 12:55 | Outpatient (CLI) | payer MEDICARE, SELFPAY ==
--- NOTE | 2021-10-18 13:08 | XR_ITS ---
FINAL REPORT CLINICAL HISTORY: RT KNEE PAIN FINDINGS: RIGHT KNEE Three views demonstrate no acute fracture or dislocation. There are osteophytes at the superior and inferior margins of the patella. There is mild soft tissue swelling anterior to the patella. There is mild narrowing of the medial compartment joint space. IMPRESSION: Degenerative changes as above. Reviewed, Interpreted and Dictated by Taqueria Lewis MD Transcribed by Lindsey Ruth Authenticated by Taqueria Lewis MD on 10/18/2021 02:54:18 PM [facility]
== END ==
PROVIDERS: PCP Internal Medicine Adolescent Medicine; Visit Provider Internal Medicine Adolescent Medicine
DX: M25.561 Pain in right knee (principal)
CPT/HCPCS: 73562

== ENCOUNTER → 2022-05-18 15:52 | Outpatient (CLI) | payer MEDICARE, SELFPAY ==
[2022-05-18 16:01] LABS: Microscopic, Urine URINE MICROSCOPIC (MICROSCOPIC)
[2022-05-18 16:36] LABS: Appearance,Urine CLEAR (Clear); Bilirubin,Urine Negative (Negative); Blood, Urine 2+ (Negative); Color,Urine YELLOW (Yellow); Glucose,Urine (UA) Negative (Negative); Ketones,Urine Negative (Negative); Leukocyte Esterase,Urine Negative (Negative); Nitrate,Urine Negative (Negative); PH,Urine 6.5 (5.0-8.5); Protein,Urine Negative (Negative)
[2022-05-18 17:57] LABS: WBC,Urine Occasional #/hpf (0-3)
== END ==
PROVIDERS: PCP Internal Medicine Adolescent Medicine; Visit Provider Internal Medicine Adolescent Medicine
DX: R30.0 Dysuria (principal)
CPT/HCPCS: 81001; 87086